=== PATIENT | male | born 2000 | race Caucasian/White ===

== ENCOUNTER 2022-02-12 02:25 | Emergency (ER) | payer OTHER ==
[2022-02-12 02:36] VITALS: BP 114/75; PULSE 70; RESP 17; TEMP 98; BMI 28.3
== END 2022-02-12 06:08 | disposition home or self-care (01) ==
LOC: JER 02:25
PROC: 0HQ5XZZ Repair Chest Skin, External Approach (ICD-10-PCS; principal; 2022-02-12)
DX: S21.112A Laceration without foreign body of left front wall of thorax without penetration into thoracic cavity, initial encounter (principal); Y93.83 Activity, rough housing and horseplay
CPT/HCPCS: 71260-TC; 99285-25; Q9967